=== PATIENT | female | born 1980 | race Caucasian/White ===

== ENCOUNTER → 2019-02-15 10:02 | Outpatient (CLI) | payer OTHER, SELFPAY ==
[2019-02-15 16:46] LABS: Chlamydia Trachomatis by PCR Negative (Negative); Neisserai gonorrhoeae by PCR Negative (Negative); Probe Check PASS; Sample Adequacy Control PASS; Specimen Processing Control PASS
[2019-02-21 11:30] LABS: HPV APTIMA, High Risk Negative (Negative)
== END ==
PROVIDERS: Visit Provider Obstetrics & Gynecology
DX: Z32.01 Encounter for pregnancy test, result positive (principal); Z12.4 Encounter for screening for malignant neoplasm of cervix; Z11.3 Encounter for screening for infections with a predominantly sexual mode of transmission
CPT/HCPCS: 87491; 87591; 87624; 88175; G0145

== ENCOUNTER → 2019-02-21 | Outpatient (CLI) | payer OTHER, SELFPAY ==
--- NOTE | 2019-02-21 10:45 | ECHOD_ITS ---
Reason For Study: HTN in Procedure This was a 2D Doppler, Color Flow transthoracic echocardiogram. Exam performed in department. Left Ventricle Normal size and thickness. The estimated ejection fraction is 75 %. Stage 1 diastolic dysfunction. No regional wall motion abnormalities noted. Right Ventricle Normal size and thickness. Normal systolic function. Atria Normal left atrium. Normal right atrium. Normal atrial septum. Mitral Valve The mitral valve is structurally normal. No prolapse or stenosis seen. Tricuspid Valve The tricuspid valve is not well visualized. Unable to estimate RV systolic pressure due to insufficient tricuspid regurgitant envelope. Aortic Valve Normal aortic valve. Trisinus/trileaflet aortic valve. Pulmonic Valve Normal pulmonic valve. Great Vessels Normal aortic root. Normal arch. Normal inferior vena cava. Inferior vena cava collapse with sniff. Pericardium/Pleural No pericardial effusion. MMode/2D Measurements & Calculations LVIDd: 4.5 cm IVSd: 1.0 cm Ao root diam: 3.0 cm LVIDs: 2.5 cm LVPWd: 1.1 cm RVDd: 3.2 cm FS: 43.8 % LAV(MOD-bp): 45.1 ml LA A4 area: 16.4 cm2 LA dimension(2D): 3.5 cm LAV(MOD-bp) Indexed: 22.9 ml/m2 LAV(MOD-sp2): 46.7 ml LAV(MOD-sp4): 44.2 ml RA A4 area: 14.3 cm2 Time Measurements MV dec time: 0.18 sec Doppler Measurements & Calculations MV E max santosh: 76.9 cm/sec Lat Peak E' Santosh: 10.5 cm/sec Med Peak E' Santosh: 9.5 cm/sec MV A max santosh: 89.6 cm/sec E/E' lat: 7.4 E/E' med: 8.1 MV E/A: 0.86 Ao V2 max: 155.7 cm/sec LV V1 max: 127.6 cm/sec PA V2 max: 114.7 cm/sec Ao max P.7 mmHg LV V1 max P.5 mmHg Interpretation Summary The estimated ejection fraction is 75 %. Stage 1 diastolic dysfunction. Unable to estimate RV systolic pressure due to insufficient tricuspid regurgitant envelope. There is no comparison study available. Ordering Physician: Kiley Mendez Referring Physician: Lonnie Garcia Performed By: Shu Encarnacion, DARRELL, RVT
== END | disposition home or self-care (01) ==
LOC: CVS 10:43
PROVIDERS: Family Provider Family Medicine; PCP Family Medicine; Referring Provider Obstetrics & Gynecology; Visit Provider Obstetrics & Gynecology
DX: O10.919 Unspecified pre-existing hypertension complicating pregnancy, unspecified trimester (principal); Z3A.00 Weeks of gestation of pregnancy not specified
CPT/HCPCS: 93306

== ENCOUNTER → 2019-03-12 09:55 | Outpatient (CLI) | payer OTHER, SELFPAY ==
[2019-03-12 10:40] LABS: Absolute Lymphocyte Count 1.74 X10^3/uL (0.83-4.51); Absolute Neutrophil Count 6.3 X10^3/uL (2.0-7.7); Basophil# 0.02 X10^3/uL; Basophil% 0.2 % (0-1); Eosinophil# 0.04 X10^3/uL; Eosinophils% 0.5 % (0-5); Hematocrit 38.7 % (37-47); Hemoglobin 13.2 g/dL (12.0-15.0); Lymphocyte # 1.74 X10^3/ul (4.0); Lymphocyte % 20.3 % (19-41); Mean Corp Hgb Conc 34.1 g/dL (32-36); Mean Corpuscular Hgb 31.2 pg (27.0-32.0); Mean Corpuscular Volume 91.5 fL (81-99); Mean Platelet Vol. 11.5 fl (6.2-12.0); Monocyte# 0.47 X10^3/uL; Monocyte% 5.5 % (0-10); NRBC Flagged by Analyzer 0 % (0-5); Neutrophil # 6.29 X10^3/uL (2.7-7.7); Neutrophil % 73.2 % (47-70); Platelet Count 182 K/mm3 (150-450); Red Blood Count 4.23 M/mm3 (4.2-5.4); White Blood Count 8.6 K/mm3 (4.4-11.0)
[2019-03-12 10:43] LABS: Color, Urine Yellow (Yellow); Glucose, Dipstick Normal (Normal); Ketone-Dipstick 50 mg/dl (Negative); Leukocyte Esterase-Dipstick 500 /ul (Negative); Nitrite-Dipstick Negative (Negative); Occult Blood-Urine 25 /ul (Negative); Protein-Dipstick 30 mg/dl (Negative); Specific Gravity, Urine 1.025 (1.002-1.030); Urine Bilirubin Dipstick Negative (Negative); Urine Clarity Sl. Cloudy (Clear); Urine Urobilinogen Normal (Normal)
[2019-03-12 10:59] LABS: Amphetamine Urine VISTA NEGATIVE (<1000 ng/mL); Barbiturate Urine VISTA NEGATIVE (< 200 ng/mL); Benzodiazepine Urine VISTA NEGATIVE (< 200 ng/mL); Cocaine Urine VISTA NEGATIVE (< 300 ng/mL); Ecstacy Urine VISTA NEGATIVE (< 500 ng/mL); Methadone Urine VISTA NEGATIVE (< 300 ng/mL); PCP Urine VISTA NEGATIVE (< 25 ng/mL); THC Urine VISTA NEGATIVE (< 50 ng/mL); Vista UDS pH Range 5
[2019-03-12 11:14] LABS: ALB/GLOB Ratio 0.8 RATIO (0.9-2.4); AST(SGOT) 9 U/L (15-37); Alanine Aminotransfer ALT/SGPT 15 U/L (13-56); Albumin, Serum 3.1 g/dL (3.2-5.0); Alkaline Phosphatase 44 U/L (45-117); Anion Gap 9 (5-15); BUN 6 mg/dL (7-18); BUN/Creat Ratio 8.6 RATIO (10-20); Calcium,Total 9.1 mg/dL (8.5-10.1); Chloride 107 mmol/L (98-107); Creatinine, Serum 0.69 mg/dL (0.55-1.02); EST Glomerular Filtration Rate 101 mL/min (>60); Est Glom Filt Rate - Afr Amer 122 mL/min (>60); Globulin 4.1 g/dL (2.2-4.2); Glucose 225 mg/dL (74-106); Glucose Challenge Gest 1H 50g 225 mg/dL (70-140); Potassium 3.5 mmol/L (3.5-5.1); Protein, Total 7.2 g/dL (6.4-8.2); Sodium Level 136 mmol/L (136-145); Thyroid Stim Hormone (TSH) 2.19 uIU/mL (0.358-3.74)
[2019-03-12 11:16] LABS: BNP,B-Type NATRIURETIC PEPTIDE 12.9 pg/mL (0-100)
[2019-03-12 11:56] LABS: HIV - WCH Non-Reactive (Nonreactive); Hepatitis B Surface Antigen Non-Reactive (Nonreactive); Hepatitis C Antibody Non-Reactive (Nonreactive); Rubella IgG 122.3 IU/mL
[2019-03-13 18:42] LABS: Hemoglobin A1c 5.7 % (4.2-6.3)
[2019-03-16 00:53] LABS: Prenatal RPR NONREACTIVE (NONREACTIVE)
== END ==
PROVIDERS: Visit Provider Obstetrics & Gynecology
DX: O99.282 Endocrine, nutritional and metabolic diseases complicating pregnancy, second trimester (principal); E28.2 Polycystic ovarian syndrome; O99.810 Abnormal glucose complicating pregnancy; Z3A.00 Weeks of gestation of pregnancy not specified
CPT/HCPCS: 36415; 80053; 80307; 81002; 82306; 82950; 83036; 83880; 84443; 85025; 86703; 86762; 86803; 87340

== ENCOUNTER 2019-04-10 13:30 | Outpatient (RCR) | payer OTHER, SELFPAY | END 2019-04-16 23:59 | LOC: DC 13:30 | PROVIDERS: Visit Provider Obstetrics & Gynecology | DX: O24.419 Gestational diabetes mellitus in pregnancy, unspecified control (principal) | CPT/HCPCS: 97802; G0108 ==

== ENCOUNTER 2019-05-17 16:00 | Outpatient (RCR) | payer OTHER, SELFPAY | END 2019-05-17 23:59 | LOC: DC 16:00 | PROVIDERS: Visit Provider Obstetrics & Gynecology | DX: O24.419 Gestational diabetes mellitus in pregnancy, unspecified control (principal) ==

== ENCOUNTER → 2019-06-08 09:38 | Outpatient (CLI) | payer OTHER, SELFPAY ==
[2019-06-08 10:57] LABS: Hematocrit 38.1 % (37-47); Hemoglobin 12.8 g/dL (12.0-15.0); Mean Corp Hgb Conc 33.6 g/dL (32-36); Mean Corpuscular Hgb 31.8 pg (27.0-32.0); Mean Corpuscular Volume 94.5 fL (81-99); Mean Platelet Vol. 11.6 fl (6.2-12.0); Platelet Count 212 K/mm3 (150-450); RBC Distribution Width SD 44.8 fl (35.1-43.9); Red Blood Count 4.03 M/mm3 (4.2-5.4); White Blood Count 8.1 K/mm3 (4.4-11.0)
== END ==
PROVIDERS: Visit Provider Obstetrics & Gynecology
DX: Z34.82 Encounter for supervision of other normal pregnancy, second trimester (principal)
CPT/HCPCS: 36415; 85027

== ENCOUNTER 2019-06-11 16:30 | Outpatient (RCR) | payer OTHER, SELFPAY | END 2019-06-16 23:59 | LOC: DC 16:30 | PROVIDERS: Visit Provider Obstetrics & Gynecology | DX: Z71.3 Dietary counseling and surveillance; O24.419 Gestational diabetes mellitus in pregnancy, unspecified control; Z3A.00 Weeks of gestation of pregnancy not specified ==

== ENCOUNTER → 2019-08-10 13:57 | Outpatient (CLI) | payer OTHER, SELFPAY | PROVIDERS: Visit Provider Obstetrics & Gynecology | DX: Z36.85 Encounter for antenatal screening for Streptococcus B (principal) | CPT/HCPCS: 87081 ==

== ENCOUNTER 2019-08-24 07:08 | Inpatient (IN) | payer OTHER, SELFPAY ==
--- NOTE | 2019-08-24 08:08 | PCM.HP.OB ---
- Problem List (1) Gestational diabetes mellitus Status: Acute Qualifiers: Gestational diabetes mellitus control: insulin-controlled Trimester: third trimester Qualified Code(s): O24.414 - Gestational diabetes mellitus in , insulin controlled (2) 38 weeks gestation of Status: Acute History Date of Admission: 08/24/19 Final DANIS: 09/02/19 Gestational age: 38 Weeks and 5 Days History of this : This is a 39 year-old, G [2], P [1001], at 38 5/7 weeks gestational age, hx GDMA2 on insulin for scheduled induction of labor. No complaints. Alcohol: None Number of Fetus(es): 1 NST - FHR Rate Baby A Baseline: 140 Variability:: Moderate Accelerations:: 15 x 15 Decelerations:: None NST Reactive:: Yes FHR Category:: Category I Uterine Activity:: 2-3/10 min History Past Pregnancies: Past Pregnancies Delivery Date GA/ Weeks Outcome Route Wt Sex Labor Length Anesthesia Delivery Location 12/2003 41 Living [id number] 14 Epidural [place] Labs: Labs 08/24/19 08/24/19 08/24/19 08:10 08:10 09:30 WBC 8.7 RBC 4.16 L Hgb 13.0 Hct 38.4 MCV 92.3 MCH 31.3 MCHC 33.9 RDW Std Deviation 44.7 H RDW Coeff of Ruben 13.3 Plt Count 171 MPV 11.1 Immature Gran % (Auto) 0.500 Neut % (Auto) 70.3 H Lymph % (Auto) 20.5 [place] % (Auto) 7.9 Eos % (Auto) 0.6 Baso % (Auto) 0.2 Absolute Neuts (auto) 6.1 Absolute Lymphs (auto) 1.77 Nucleated RBC % 0 Sodium 138 Potassium 4.0 Chloride 108 H Carbon Dioxide 22.0 Anion Gap 8 BUN 7 Creatinine 0.76 Estim Creat Clear Calc 80.16 Est GFR (MDRD) Af Amer 111 Est GFR (MDRD) Non-Af 92 BUN/Creatinine Ratio 9.3 L Glucose 115 H Uric Acid 5.3 Calcium 9.4 Total Bilirubin 0.40 AST 9 L ALT 13 Alkaline Phosphatase 132 H Total Protein 7.0 Albumin 2.9 L Globulin 4.1 Albumin/Globulin Ratio 0.7 L Urine Color Yellow Urine Clarity Sl. Cloudy Urine pH 6.5 Ur Specific [place] 1.020 Urine Protein 15 H Urine Glucose (UA) Normal Urine Ketones 150 H Urine Occult Blood 25 H Urine Nitrite Negative Urine Bilirubin Negative Urine Urobilinogen Normal Ur Leukocyte Esterase 500 H Urine RBC 0-5 SEEN Urine WBC 25-50 SEEN Ur Squamous Epith Cells 5-10 SEEN Urine Bacteria 1+ Urine Mucus 0 SEEN Expected Infant Delivery Method: Spontaneous Vaginal Number of Visits: 13 Review of Systems Eyes: Denies: Vision Change Gastrointestinal: Denies: Abdominal Pain, Nausea Gynecological: Denies: Vaginal bleeding Neurological: Denies: Headaches Physical Exam Vitals: avss General: Alert, Oriented x3, Cooperative, No apparent distress HEENT: Atraumatic, Normocephalic Cardiovascular: Regular Rhythm Lungs: Normal air movement Abdomen: Soft, Non Tender, Non-Distended, Gravid Neurological: Neuro grossly intact, - - +2 b/l LE DTRs, + 3 b/l UE DTRs STEWARD/STEWARDESS SMOKE ROOM: Normal external genitalia Estimated gestational size: Appropriate for gestational size Presentation: - - Cephalic on US, OP Cervix Dilation (cm): 3 Station: -3 Effacement (%): 50 Assessment/Plan All Active Problems Gestational diabetes mellitus (Acute) 38 weeks gestation of (Acute) This is a 39 year-old, G [2], P [1], at 38 5/7 weeks gestational age, hx GDM. -Pitocin induction -IOL r/b/i/a including section as alternative and reviewed shoulder dystocia risks and potential sequelae including risk for HIE, CP, . Consents signed. Pt opts for trial of labor. Patient and spouse given opportunity to ask questions and questions answered to their satisfaction. -GBS neg -Insulin ordered at half dose
[2019-08-24] MEDS: Lactated Ringers 1,000 ML 50 ML IV (08:25)
[2019-08-24 08:34] LABS: Absolute Lymphocyte Count 1.77 X10^3/uL (0.83-4.51); Absolute Neutrophil Count 6.1 X10^3/uL (2.0-7.7); Basophil# 0.02 X10^3/uL; Basophil% 0.2 % (0-1); Eosinophil# 0.05 X10^3/uL; Eosinophils% 0.6 % (0-5); Hematocrit 38.4 % (37-47); Lymphocyte # 1.77 X10^3/ul (4.0); Lymphocyte % 20.5 % (19-41); Mean Corp Hgb Conc 33.9 g/dL (32-36); Mean Corpuscular Hgb 31.3 pg (27.0-32.0); Mean Corpuscular Volume 92.3 fL (81-99); Mean Platelet Vol. 11.1 fl (6.2-12.0); Monocyte# 0.68 X10^3/uL; Monocyte% 7.9 % (0-10); NRBC Flagged by Analyzer 0 % (0-5); Neutrophil # 6.09 X10^3/uL (2.7-7.7); Neutrophil % 70.3 % (47-70); Platelet Count 171 K/mm3 (150-450); RBC Distribution Width CV 13.3 % (11.6-14.6); RBC Distribution Width SD 44.7 fl (35.1-43.9); Red Blood Count 4.16 M/mm3 (4.2-5.4); White Blood Count 8.7 K/mm3 (4.4-11.0)
[2019-08-24 08:49] VITALS: BMI 41.2
[2019-08-24 08:51] LABS: Bedside Glucose 116 mg/dL (70-110)
[2019-08-24 08:58] LABS: ALB/GLOB Ratio 0.7 RATIO (0.9-2.4); AST(SGOT) 9 U/L (15-37); Alanine Aminotransfer ALT/SGPT 13 U/L (13-56); Albumin, Serum 2.9 g/dL (3.2-5.0); Alkaline Phosphatase 132 U/L (45-117); Anion Gap 8 (5-15); BUN 7 mg/dL (7-18); BUN/Creat Ratio 9.3 RATIO (10-20); Calcium,Total 9.4 mg/dL (8.5-10.1); Chloride 108 mmol/L (98-107); Creatinine, Serum 0.76 mg/dL (0.55-1.02); EST Glomerular Filtration Rate 92 mL/min (>60); Est Glom Filt Rate - Afr Amer 111 mL/min (>60); Estimated Creatinine Clearance 80.16 ml/min; Globulin 4.1 g/dL (2.2-4.2); Glucose 115 mg/dL (74-106); Sodium Level 138 mmol/L (136-145); Uric Acid 5.3 mg/dL (2.6-6.0)
[2019-08-24] MEDS: Oxytocin 30 units/NS 500 ml 30 UNITS/500 ML IV.SOLN IV (09:30)
[2019-08-24] MEDS: Insulin NPH Human 100 UNITS/ML PEN 20 UNITS SC (09:32)
[2019-08-24 10:12] LABS: Mucous, Urine 0 SEEN /hpf (<or=2+)
[2019-08-24 10:26] LABS: Color, Urine Yellow (Yellow); Glucose, Dipstick Normal (Normal); Leukocyte Esterase-Dipstick 500 /ul (Negative); Nitrite-Dipstick Negative (Negative); Occult Blood-Urine 25 /ul (Negative); Protein-Dipstick 15 mg/dl (Negative); Urine Bilirubin Dipstick Negative (Negative); Urine Clarity Sl. Cloudy (Clear); Urine Urobilinogen Normal (Normal); Urine pH 6.5 (5.0 - 8.0)
[2019-08-24 10:28] LABS: Ketone-Dipstick 150 mg/dl (Negative)
[2019-08-24 10:33] LABS: Bacteria 1+ /hpf (None Seen); Red Blood Cells-Urine 0-5 SEEN /hpf (0-5); Squamous Epithelial Cells - UA 5-10 SEEN /hpf (5-10); White Blood Cells 25-50 SEEN /hpf (0-5)
[2019-08-24 12:41] LABS: Bedside Glucose 105 mg/dL (70-110)
--- NOTE | 2019-08-24 12:56 | PCM.PN.BLA ---
Progress Note LABOR PROGRESS NOTE No complaints. AVSS GEN - NAD, AAO x 3 FHR 150, moderate variability, some loss of contact TOCO 2-3/10 min SVE 4/50/-3, moderate and midposition A/P: 39yo @ 38 5/7wga, hx GDMA2 -FS well controlled -Amniotomy performed with clear fluid, ISE and IUPC placed -Continue pitocin as tolerated by mother and fetus -Maternal and statuses reassuring
[2019-08-24] MEDS: Lactated Ringers 500 ML 999 ML IV ×3 (13:29→19:52)
[2019-08-24] MEDS: fentaNYL-bupivacaine (epidural) 100 ML BAG EPIDURAL ×2 (14:25→19:39)
[2019-08-24 16:41] LABS: Bedside Glucose 107 mg/dL (70-110)
[2019-08-24 17:41] LABS: Bedside Glucose 97 mg/dL (70-110)
[2019-08-24] MEDS: Lactated Ringers 1,000 ML 200 ML IV (18:35)
[2019-08-24 18:46] LABS: Bedside Glucose 87 mg/dL (70-110)
[2019-08-24 19:51] LABS: Bedside Glucose 122 mg/dL (70-110)
[2019-08-24] MEDS: Insulin NPH Human 100 UNITS/ML PEN 18 UNITS SC (20:00)
--- NOTE | 2019-08-24 20:47 | PN_ITS ---
Progress Note FHT: 150 Moderate variability reactive periodic variable decelerations category II tracing. resolved with position changes. now early decels [place]: 2 1/2 minutes Contractions
--- NOTE | 2019-08-24 20:50 | NURSING ---
Dr. Andujar updated about patient's BGT. Provider wants BGT checked in another 30 minutes
[2019-08-24 20:51] LABS: Bedside Glucose 127 mg/dL (70-110)
[2019-08-24 21:25] LABS: Bedside Glucose 115 mg/dL (70-110)
[2019-08-24 22:31] LABS: Bedside Glucose 102 mg/dL (70-110)
[2019-08-24] MEDS: Oxytocin 30 units/NS 500 ml 30 UNITS/500 ML IV.SOLN 334 UNITS IV (22:38)
[2019-08-24] MEDS: Carboprost Tromethamine 250 MCG/ML Ampul IM (22:44)
[2019-08-24] MEDS: miSOPROStol 200 MCG Tablet 1000 MCG RECTAL (22:49)
--- NOTE | 2019-08-24 22:57 | PCM.OPRPT ---
Problem List (1) Uterine atony, , without hemorrhage Status: Acute (2) Gestational diabetes mellitus Status: Acute Qualifiers: Gestational diabetes mellitus control: insulin-controlled Trimester: third trimester Qualified Code(s): O24.414 - Gestational diabetes mellitus in , insulin controlled (3) 38 weeks gestation of Status: Acute Vaginal Delivery Maternal Presentation: Medically Indicated Induction iol chtn and gdma2 Method of Induction: Pitocin Medical Reason for Induction: Gestational Hypertension Amniotic Membrane Rupture Type: Artificial Amniotic Fluid Description: Clear Final DANIS: 09/02/19 Gestational age: 38 Weeks and 5 Days Date of Procedure: 08/24/19 Pre-Operative Diagnosis: iol chtn gdma2 Post-Operative Diagnosis: same Surgery/ Procedure Performed: Spontaneous Vaginal Delivery Type of Anesthesia: Epidural Description of Procedure: Patient began pushing and delivered the head in the [DANIELA] presentation. The head was delivered atraumatically and a loose nuchal cord x2 was identified and easily reduced over the 's head. The anterior and posterior shoulders delivered without complication followed by the rest of the and the was placed on the maternal abdomen. Delayed cord clamping was employed for approximately 60 seconds. Cord was clamped and cut and gentle traction was applied to the cord and the placenta delivered spontaneously immediately following it was noted to be intact with three-vessel cord. The perineum and vagina were inspected and noted to have a small first-degree perineal laceration that was repaired in the usual fashion with 3-0 Vicryl Rapide. EBL was 600 cc. There was some uterine atony noted which was remedied with bimanual massage, Hemabate and Cytotec and Pitocin. Discussed with nursing to monitor blood loss over the next 24 hours. Patient and tolerated delivery well. Presentation: DANIELA Placental Delivery Description: Spontaneous Placenta Disposition: [facility] Cord Vessel Description: 3 Vessels Cord Entanglement: Around neck x 2, loose Drain: Bonds to straight drain Estimated Blood Loss: 600 Infant A gender: Male Episiotomy Description: None Laceration: Perineal Extension/lac, 1st degree Medications given after delivery: IV Pitocin, IM Hemabate, - - cytotec Complications: None Multi Select Codes - Urinary/Genital Urinary/Genital CPT Codes: 82628 Vaginal Delivery Only
[2019-08-25] VITALS (7 sets, daily range): BP systolic 101–118; BP diastolic 58–70; PULSE 95–109; RESP 16–18; TEMP 36.8–37.5; O2SAT 98
[2019-08-25 00:55] LABS: Bedside Glucose 99 mg/dL (70-110)
--- NOTE | 2019-08-25 01:05 | NURSING ---
audelia pad weighed after recovery. Weight was 405 grams
--- NOTE | 2019-08-25 02:02 | NURSING ---
Lorena pad changed, weight 245 grams
--- NOTE | 2019-08-25 02:16 | NURSING ---
Dr. Andujar updated about bloos loss. Orders given to given hemabate, start transexemic acid, and 500cc LR bolus
[2019-08-25] MEDS: Carboprost Tromethamine 250 MCG/ML Ampul IM (02:32)
[2019-08-25] MEDS: 0.9% Saline Lock 10 ML Syringe IV ×2 (02:43→02:59)
[2019-08-25] MEDS: Acetaminophen 500 MG Tablet 1000 MG PO (02:59)
[2019-08-25] MEDS: Lactated Ringers 500 ML 999 ML IV (03:00)
[2019-08-25 05:27] LABS: Absolute Lymphocyte Count 1.33 X10^3/uL (0.83-4.51); Absolute Neutrophil Count 13.2 X10^3/uL (2.0-7.7); Basophil# 0.03 X10^3/uL; Basophil% 0.2 % (0-1); Eosinophil# 0.01 X10^3/uL; Eosinophils% 0.1 % (0-5); Hematocrit 30.3 % (37-47); Hemoglobin 10.4 g/dL (12.0-15.0); Lymphocyte # 1.33 X10^3/ul (4.0); Lymphocyte % 8.4 % (19-41); Mean Corp Hgb Conc 34.3 g/dL (32-36); Mean Corpuscular Hgb 31.6 pg (27.0-32.0); Mean Corpuscular Volume 92.1 fL (81-99); Monocyte# 1.18 X10^3/uL; Monocyte% 7.4 % (0-10); NRBC Flagged by Analyzer 0 % (0-5); Neutrophil # 13.21 X10^3/uL (2.7-7.7); Neutrophil % 83.1 % (47-70); Platelet Count 195 K/mm3 (150-450); RBC Distribution Width CV 13.2 % (11.6-14.6); RBC Distribution Width SD 43.8 fl (35.1-43.9); Red Blood Count 3.29 M/mm3 (4.2-5.4); White Blood Count 15.9 K/mm3 (4.4-11.0)
[2019-08-25 05:37] LABS: Bedside Glucose 125 mg/dL (70-110)
--- NOTE | 2019-08-25 05:59 | PN.OBGYN_ITS ---
Patient Problems: Active and Suspected Problems Gestational diabetes mellitus (Acute) 38 weeks gestation of (Acute) Uterine atony, , without hemorrhage (Acute) Subjective: Has not eaten since delivery; tolerating clears well; passing flatus, has had two bowel movements, likely as a result of IM Hemabate and [place] Cytotec following delivery; progressing; denies s/s anemia Objective: AVSS, HR slightly elevated Nipples atraumatic Fundus firm, midline , u/u, lochia small Perineal repair well approximated, minimal edema, no erythema or ecchymosis - Physical Exam Vitals/I&O's: Vital Signs Pulse BP 109 H 107/64 08/25/19 03:16 08/25/19 03:16 Weight: 225 lb 8.526 oz Body Mass Index (BMI) 41.2 Intake and Output for Last 24 Hours 08/23/19 08/24/19 08/25/19 23:59 23:59 23:59 Intake Total 3501.17 / 3501.17 959.7 / 959.7 Balance 3501.17 / 3501.17 959.7 / 959.7 General: Alert, Oriented x3, Cooperative, No apparent distress HEENT: PERRLA, EOMI Oral: Moist Mucosa Neck: Supple Lungs: Clear to auscultation, Normal air movement Cardiovascular: Regular rate, Regular Rhythm Abdomen: Bowel Sounds Present, Soft, Non Tender, Non-Distended, Passing Flatus, Obese Extremities: Capillary Refill Less than 3 Seconds, No Calf Tenderness, Edema - 1+ non pitting bilateral lower extremities Skin: No rashes Musculoskeletal: No Tenderness to Palpation of Joints or Extremities Neurological: Cranial nerves II-XII grossly intact, Deep Tendon Reflexes 2+/4 and Symmetrical, Neuro grossly intact Psych/Mental Status: Normal Affect, Appropriate Laboratory Results 08/24/19 08:10: Sodium 138, Potassium 4.0, Chloride 108 H, Carbon Dioxide 22.0, Anion Gap 8, BUN 7, Creatinine 0.76, Estim Creat Clear Calc 80.16, Est GFR (MDRD) Af Amer 111, Est GFR (MDRD) Non-Af 92, BUN/Creatinine Ratio 9.3 L, Glucose 115 H, Uric Acid 5.3, Calcium 9.4, Total Bilirubin 0.40, AST 9 L, ALT 13, Alkaline Phosphatase 132 H, Total Protein 7.0, Albumin 2.9 L, Globulin 4.1, Albumin/Globulin Ratio 0.7 L 08/24/19 08:10: WBC 8.7, RBC 4.16 L, Hgb 13.0, Hct 38.4, MCV 92.3, MCH 31.3, MCHC 33.9, RDW Std Deviation 44.7 H, RDW Coeff of Ruben 13.3, Plt Count 171, MPV 11.1, Immature Gran % (Auto) 0.500, Neut % (Auto) 70.3 H, Lymph % (Auto) 20.5, [place] % (Auto) 7.9, Eos % (Auto) 0.6, Baso % (Auto) 0.2, Absolute Neuts (auto) 6.1, Absolute Lymphs (auto) 1.77, Nucleated RBC % 0 08/24/19 08:10: Blood Type Cancelled, A1 Antigen Typing Cancelled, Rho(D) Type Cancelled, Antibody Screen Cancelled 08/24/19 08:27: POC Glucose 116 H 08/24/19 09:30: Urine Color Yellow, Urine Clarity Sl. Cloudy, Urine pH 6.5, Ur Specific [place] 1.020, Urine Protein 15 H, Urine Glucose (UA) Normal, Urine Ketones 150 H, Urine Occult Blood 25 H, Urine Nitrite Negative, Urine Bilirubin Negative, Urine Urobilinogen Normal, Ur Leukocyte Esterase 500 H, Urine RBC 0-5 SEEN, Urine WBC 25-50 SEEN, Ur Squamous Epith Cells 5-10 SEEN, Urine Bacteria 1+, Urine Mucus 0 SEEN 08/24/19 09:37: Blood Type B POSITIVE, Antibody Screen NEGATIVE 08/24/19 12:28: POC Glucose 105 08/24/19 16:29: POC Glucose 107 08/24/19 17:35: POC Glucose 97 08/24/19 18:34: POC Glucose 87 08/24/19 19:38: POC Glucose 122 H 08/24/19 20:42: POC Glucose 127 H 08/24/19 21:18: POC Glucose 115 H 08/24/19 22:16: POC Glucose 102 08/24/19 23:18: POC Glucose 99 08/25/19 05:15: WBC 15.9 H, RBC 3.29 L, Hgb 10.4 L, Hct 30.3 L, MCV 92.1, MCH 31.6, MCHC 34.3, RDW Std Deviation 43.8, RDW Coeff of [place]en 13.2, Plt Count 195, MPV 11.0, Immature Gran % (Auto) 0.800, Neut % (Auto) 83.1 H, Lymph % (Auto) 8.4 L, [place] % (Auto) 7.4, Eos % (Auto) 0.1, Baso % (Auto) 0.2, Absolute Neuts (auto) 13.2 H, Absolute Lymphs (auto) 1.33, Nucleated RBC % 0 08/25/19 05:33: POC Glucose 125 H Current Medications Acetaminophen (Tylenol) 1,000 mg PO Q8H PRN PRN PRN Reason: Pain Score 1-3/10 Last Admin: 08/25/19 02:59 Dose: 1,000 mg Documented by: Bisacodyl (Dulcolax) 10 mg RECTAL UD PRN PRN Reason: If no BM Dibucaine (Dibucaine) 1 applic TOPICAL TID PRN PRN; Protocol PRN Reason: Discomfort Glucagon () 1 mg IM .X1 PRN PRN Reason: Hypoglycemia Hydrocortisone (Hytone) 1 applic TOPICAL TID PRN PRN; Protocol PRN Reason: Discomfort Dextrose (Dextrose 10%-Water) 250 mls @ 999 mls/hr IV X1 PRN; Protocol PRN Reason: HYPOGLYCEMIA Insulin Human Lispro (Humalog Kwikpen (Bkc)) 0 unit SC [facility]; Protocol Methylergonovine Maleate (Methergine) 0.2 mg IM X1 PRN PRN Reason: Excess bleeding/uterine atony Naproxen (Naprosyn) 500 mg PO Q8H PRN PRN PRN Reason: Pain Score 1-3/10 Ondansetron HCl (Zofran) 4 mg IV Q4H PRN PRN PRN Reason: Nausea Oxycodone HCl (Oxyir) 5 - 10 mg PO Q4H PRN PRN PRN Reason: Pain Score 4-10/10 Senna/Docusate Sodium (Senokot-S, [place]-Colace) 1 - 2 tablet PO DAILY PRN PRN PRN Reason: Constipation Simethicone (Mylicon) 80 mg PO PCHS PRN PRN Reason: Indigestion/Stomach pain Sodium Chloride () 5 - 15 ml IV UD PRN PRN Reason: SALINE FLUSH Last Admin: 08/25/19 02:59 Dose: 10 ml Documented by: Medical Necessity - Tobacco Use Smoking Status: Former smoker Assessment/Plan All Active Problems Gestational diabetes mellitus (Acute) 38 weeks gestation of (Acute) Uterine atony, , without hemorrhage (Acute) Assessment: 39yo G2 now P2002 delivered via @ 38w5d gestation GDMA2 Uterine Atony without hemorrhage Mild anemia PP day #1, involution and course progressing Plan: Discharge teaching started Continue POC blood sugar tests as previously ordered Maintain saline lock until bleeding stable May discharge home tomorrow if stable
--- NOTE | 2019-08-25 06:08 | DCINST_ITS ---
Discharge Diet: No Restrictions Discharge Activity: Return to Normal Activity, No Restrictions, May Shower, May Take a Tub Bath Return to work on:: 10/12/19 May resume sexual activity in: 6-8 weeks Weight Bearing Status: Weight bearing as tolerated Lifting Restrictions: Nothing heavier than the baby for two weeks Additional Activity Instructions:: Minimize cooking, cleaning, shopping and long car trips for two weeks; try to sleep at least eight hours in a 24 hour period for the first two weeks; sleep when the baby sleeps Call your doctor if your incision/area has: Continuous Slow Oozing, Sudden Increased Bleeding, Increased Pain/ Swelling, Increased Redness, Foul Smelling Discharge, Swelling at the incision site Call your doctor if you observe: Fever of 101 or Higher, Inability to urinate, Inability to have a bowel movement, Using more than one pad per hour, Shortness of breath, Fainting spells, Chest pain, Increased palpitations (irregular heartbeat), Calf discomfort, Uncontrolled pain Additional Instructions: If you experience any of the following, contact your healthcare provider. * Bleeding that soaks a pad every hour for 2 hours * Fever 100.4 or higher * Unrelieved incision or abdominal pain * Swelling, redness, discharge or bleeding from your incision or episiotomy site * Your incision begins to separate * Problems urinating (including inability to urinate or burning while urinating). * Visual changes * Severe headache * Flu-like symptoms * Pain or redness in one of both of your breasts * Pain, warmth, tenderness or swelling in your legs, especially the calf area * Frequent nausea and vomiting * Symptoms of depression or anxiety If you experience any of the following, call 911 or go to the nearest Emergency Room. * Chest pain * Problems breathing * Seizure activity * Partial or complete paralysis of a body part, slurred speech, weakness or marquis oping of the face, or a sudden inability to walk or hold your balance Allergies/Adverse Reactions: Allergies No Known Allergies Allergy (Verified 08/24/19 09:02) Please Follow Up With: Ifeoma Jarrett MD - . When: 2 weeks for blood sugar check; 6 weeks for checkup Primary Care Physician: Care Physician,No Primary [Primary Care Provider] - Test Results: Test results from this visit will be discussed in further detail at your follow- up appointment, if applicable.
--- NOTE | 2019-08-25 08:21 | PCM.PN.OB ---
Patient Problems: Active and Suspected Problems Gestational diabetes mellitus (Acute) 38 weeks gestation of (Acute) Uterine atony, , without hemorrhage (Acute) Subjective: doing well no complaints pain controlled no CP SOB N V ambulating well tolerating po lochia moderate now, improved after tranexamic acid, going fairly well - Physical Exam Vitals/I&O's: Vital Signs Pulse BP 109 H 107/64 08/25/19 03:16 08/25/19 03:16 Weight: 225 lb 8.526 oz Body Mass Index (BMI) 41.2 Intake and Output for Last 24 Hours 08/23/19 08/24/19 08/25/19 23:59 23:59 23:59 Intake Total 3501.17 / 3501.17 959.7 / 959.7 Output Total 100 / 100 Balance 3501.17 / 3501.17 859.7 / 859.7 General: Alert, Oriented x3 Laboratory Results 08/24/19 08:10: Sodium 138, Potassium 4.0, Chloride 108 H, Carbon Dioxide 22.0, Anion Gap 8, BUN 7, Creatinine 0.76, Estim Creat Clear Calc 80.16, Est GFR (MDRD) Af Amer 111, Est GFR (MDRD) Non-Af 92, BUN/Creatinine Ratio 9.3 L, Glucose 115 H, Uric Acid 5.3, Calcium 9.4, Total Bilirubin 0.40, AST 9 L, ALT 13, Alkaline Phosphatase 132 H, Total Protein 7.0, Albumin 2.9 L, Globulin 4.1, Albumin/Globulin Ratio 0.7 L 08/24/19 08:10: WBC 8.7, RBC 4.16 L, Hgb 13.0, Hct 38.4, MCV 92.3, MCH 31.3, MCHC 33.9, RDW Std Deviation 44.7 H, RDW Coeff of [place] 13.3, Plt Count 171, MPV 11.1, Immature Gran % (Auto) 0.500, Neut % (Auto) 70.3 H, Lymph % (Auto) 20.5, [place] % (Auto) 7.9, Eos % (Auto) 0.6, Baso % (Auto) 0.2, Absolute Neuts (auto) 6.1, Absolute Lymphs (auto) 1.77, Nucleated RBC % 0 08/24/19 08:10: Blood Type Cancelled, A1 Antigen Typing Cancelled, Rho(D) Type Cancelled, Antibody Screen Cancelled 08/24/19 08:27: POC Glucose 116 H 08/24/19 09:30: Urine Color Yellow, Urine Clarity Sl. Cloudy, Urine pH 6.5, Ur Specific [place] 1.020, Urine Protein 15 H, Urine Glucose (UA) Normal, Urine Ketones 150 H, Urine Occult Blood 25 H, Urine Nitrite Negative, Urine Bilirubin Negative, Urine Urobilinogen Normal, Ur Leukocyte Esterase 500 H, Urine RBC 0-5 SEEN, Urine WBC 25-50 SEEN, Ur Squamous Epith Cells 5-10 SEEN, Urine Bacteria 1+, Urine Mucus 0 SEEN 08/24/19 09:37: Blood Type B POSITIVE, Antibody Screen NEGATIVE 08/24/19 12:28: POC Glucose 105 08/24/19 16:29: POC Glucose 107 08/24/19 17:35: POC Glucose 97 08/24/19 18:34: POC Glucose 87 08/24/19 19:38: POC Glucose 122 H 08/24/19 20:42: POC Glucose 127 H 08/24/19 21:18: POC Glucose 115 H 08/24/19 22:16: POC Glucose 102 08/24/19 23:18: POC Glucose 99 08/25/19 05:15: WBC 15.9 H, RBC 3.29 L, Hgb 10.4 L, Hct 30.3 L, MCV 92.1, MCH 31.6, MCHC 34.3, RDW Std Deviation 43.8, RDW Coeff of [place] 13.2, Plt Count 195, MPV 11.0, Immature Gran % (Auto) 0.800, Neut % (Auto) 83.1 H, Lymph % (Auto) 8.4 L, [place] % (Auto) 7.4, Eos % (Auto) 0.1, Baso % (Auto) 0.2, Absolute Neuts (auto) 13.2 H, Absolute Lymphs (auto) 1.33, Nucleated RBC % 0 08/25/19 05:33: POC Glucose 125 H Current Medications Acetaminophen (Tylenol) 1,000 mg PO Q8H PRN PRN PRN Reason: Pain Score 1-3/10 Last Admin: 08/25/19 02:59 Dose: 1,000 mg Documented by: Bisacodyl (Dulcolax) 10 mg RECTAL UD PRN PRN Reason: If no BM Dibucaine (Dibucaine) 1 applic TOPICAL TID PRN PRN; Protocol PRN Reason: Discomfort Glucagon () 1 mg IM .X1 PRN PRN Reason: Hypoglycemia Hydrocortisone (Hytone) 1 applic TOPICAL TID PRN PRN; Protocol PRN Reason: Discomfort Dextrose (Dextrose 10%-Water) 250 mls @ 999 mls/hr IV X1 PRN; Protocol PRN Reason: HYPOGLYCEMIA Insulin Human Lispro (Humalog Kwikpen (Bkc)) 0 unit SC [facility]; Protocol Loperamide HCl (Imodium) 2 mg PO Q2H PRN PRN PRN Reason: Diarrhea Metformin [facility] (Glucophage) [facility] Methylergonovine Maleate (Methergine) 0.2 mg IM X1 PRN PRN Reason: Excess bleeding/uterine atony Naproxen (Naprosyn) 500 mg PO Q8H PRN PRN PRN Reason: Pain Score 1-3/10 Ondansetron HCl (Zofran) 4 mg IV Q4H PRN PRN PRN Reason: Nausea Oxycodone HCl (Oxyir) 5 - 10 mg PO Q4H PRN PRN PRN Reason: Pain Score 4-10/10 Senna/Docusate Sodium (Senokot-S, [place]-Colace) 1 - 2 tablet PO DAILY PRN PRN PRN Reason: Constipation Simethicone (Mylicon) 80 mg PO PCHS PRN PRN Reason: Indigestion/Stomach pain Sodium Chloride () 5 - 15 ml IV UD PRN PRN Reason: SALINE FLUSH Last Admin: 08/25/19 02:59 Dose: 10 ml Documented by: Medical Necessity - Tobacco Use Smoking Status: Former smoker Assessment/Plan All Active Problems Gestational diabetes mellitus (Acute) 38 weeks gestation of (Acute) Uterine atony, , without hemorrhage (Acute) s/p PPD # 1 1. routine post delivery care 2. breast feeding- support given 3. rh positive 4. rubella immune 5. GDM- has been on insulin since first trimester, true FBS this morning 125- will start metformin 500 BID and SSI ordered. carb controlled diet. discussed termite inspector recommend to fu with endocrinology. 6. uterine atony- given hemabate, cytotec, tranexamic acid and pitocin. well controlled now.
[2019-08-25] MEDS: metFORMIN HCl 500 MG Tablet PO ×2 (08:58→18:49)
[2019-08-25 09:01] LABS: Bedside Glucose 106 mg/dL (70-110)
[2019-08-25 11:06] LABS: Absolute Neutrophil Count 10.1 X10^3/uL (2.0-7.7); Basophil# 0.02 X10^3/uL; Basophil% 0.2 % (0-1); Eosinophil# 0.03 X10^3/uL; Eosinophils% 0.2 % (0-5); Hematocrit 26.8 % (37-47); Hemoglobin 9.4 g/dL (12.0-15.0); Lymphocyte % 14.2 % (19-41); Mean Corp Hgb Conc 35.1 g/dL (32-36); Mean Corpuscular Hgb 32.1 pg (27.0-32.0); Mean Corpuscular Volume 91.5 fL (81-99); Mean Platelet Vol. 11.2 fl (6.2-12.0); Monocyte# 0.73 X10^3/uL; Monocyte% 5.8 % (0-10); NRBC Flagged by Analyzer 0 % (0-5); Neutrophil # 10.06 X10^3/uL (2.7-7.7); Neutrophil % 79.2 % (47-70); Platelet Count 172 K/mm3 (150-450); RBC Distribution Width CV 13.3 % (11.6-14.6); RBC Distribution Width SD 43.9 fl (35.1-43.9); Red Blood Count 2.93 M/mm3 (4.2-5.4); White Blood Count 12.7 K/mm3 (4.4-11.0)
[2019-08-25 13:36] LABS: Bedside Glucose 104 mg/dL (70-110)
[2019-08-25 18:51] LABS: Bedside Glucose 125 mg/dL (70-110)
--- NOTE | 2019-08-26 00:19 | NURSING ---
This RN reported BGT 87 to primary nurse, Dasha Arias
[2019-08-26 00:21] LABS: Bedside Glucose 87 mg/dL (70-110)
[2019-08-26 02:45] VITALS: BP 98/56; PULSE 92; RESP 18; TEMP 36.7
--- NOTE | 2019-08-26 05:38 | PN.OBGYN_ITS ---
Patient Problems: Active and Suspected Problems Gestational diabetes mellitus (Acute) 38 weeks gestation of (Acute) Uterine atony, , without hemorrhage (Acute) Subjective: Pain well controlled, tolerating diet, passing flatus, well; planning BTL for contraception Objective: AVSS Breasts filling, nipples atraumatic Fundus firm, midline, u/1, lochia small Perineal repair well approximated, no edema, drainage, ecchymosis or erythema noted - Physical Exam Vitals/I&O's: Vital Signs Temp Pulse Resp BP Pulse Ox 98.0 F 92 18 98/56 L 98 08/26/19 02:45 08/26/19 02:45 08/26/19 02:45 08/26/19 02:45 08/25/19 16:45 Oxygen Delivery Method Room Air Weight: 225 lb 8.526 oz Body Mass Index (BMI) 41.2 Intake and Output for Last 24 Hours 08/24/19 08/25/19 08/26/19 23:59 23:59 23:59 Intake Total 3501.17 / 3501.17 959.7 / 959.7 Output Total 450 / 450 Balance 3501.17 / 3501.17 509.7 / 509.7 General: Alert, Oriented x3, Cooperative, No apparent distress HEENT: PERRLA, EOMI Oral: Moist Mucosa Neck: Supple Lungs: Clear to auscultation, Normal air movement Cardiovascular: Regular rate, Regular Rhythm Abdomen: Bowel Sounds Present, Soft, Non Tender, Non-Distended, Passing Flatus Extremities: Edema - 1+ non pitting bilateral lower extremities Skin: No rashes Musculoskeletal: No Tenderness to Palpation of Joints or Extremities Neurological: Cranial nerves II-XII grossly intact, Deep Tendon Reflexes 2+/4 and Symmetrical, Neuro grossly intact Psych/Mental Status: Normal Affect, Appropriate, Alert and oriented to time, place, person, mood and affect Laboratory Results 08/25/19 08:53: POC Glucose 106 08/25/19 10:55: WBC 12.7 H, RBC 2.93 L, Hgb 9.4 L, Hct 26.8 L, MCV 91.5, MCH 32.1 H, MCHC 35.1, RDW Std Deviation 43.9, RDW Coeff of Ruben 13.3, Plt Count 172, MPV 11.2, Immature Gran % (Auto) 0.400, Neut % (Auto) 79.2 H, Lymph % (Auto) 14.2 L, Campbell % (Auto) 5.8, Eos % (Auto) 0.2, Baso % (Auto) 0.2, Absolute Neuts (auto) 10.1 H, Absolute Lymphs (auto) 1.80, Nucleated RBC % 0 08/25/19 13:03: POC Glucose 104 08/25/19 18:45: POC Glucose 125 H 08/26/19 00:16: POC Glucose 87 Current Medications Acetaminophen (Tylenol) 1,000 mg PO Q8H PRN PRN PRN Reason: Pain Score 1-3/10 Last Admin: 08/25/19 02:59 Dose: 1,000 mg Documented by: Bisacodyl (Dulcolax) 10 mg RECTAL UD PRN PRN Reason: If no BM Dibucaine (Dibucaine) 1 applic TOPICAL TID PRN PRN; Protocol PRN Reason: Discomfort Hydrocortisone (Hytone) 1 applic TOPICAL TID PRN PRN; Protocol PRN Reason: Discomfort Loperamide HCl (Imodium) 2 mg PO Q2H PRN PRN PRN Reason: Diarrhea Metformin HCl (Glucophage) 500 mg PO BIDCM [facility] Last Admin: 08/25/19 18:49 Dose: 500 mg Documented by: Methylergonovine Maleate (Methergine) 0.2 mg IM X1 PRN PRN Reason: Excess bleeding/uterine atony Naproxen (Naprosyn) 500 mg PO Q8H PRN PRN PRN Reason: Pain Score 1-3/10 Oxycodone HCl (Oxyir) 5 - 10 mg PO Q4H PRN PRN PRN Reason: Pain Score 4-10/10 Senna/Docusate Sodium (Senokot-S, Lorena-Colace) 1 - 2 tablet PO DAILY PRN PRN PRN Reason: Constipation Simethicone (Mylicon) 80 mg PO PCHS PRN PRN Reason: Indigestion/Stomach pain Medical Necessity - Tobacco Use Smoking Status: Former smoker Assessment/Plan All Active Problems Gestational diabetes mellitus (Acute) 38 weeks gestation of (Acute) Uterine atony, , without hemorrhage (Acute) Assessment: 39yo G2 now P2002 delivered via @ 38w5d gestation GDMA2 Uterine Atony without hemorrhage Mild anemia PP day #2, normal involution, normal course Plan: Discharge teaching completed Continue blood sugar testing at home as in May discharge home today pending evaluation by Dr. Richardson RTO 2 week for evaluation of blood glucose conrol, 6 weeks for checkup
[2019-08-26 08:30] VITALS: BP 98/52; PULSE 83; RESP 16; TEMP 37
[2019-08-26] MEDS: metFORMIN HCl 500 MG Tablet PO (08:35)
--- NOTE | 2019-08-26 08:46 | PN.OBGYN_ITS ---
Subjective: doing well no complaints pain controlled no CP SOB N V ambulating well tolerating po lochia moderate, going well - Physical Exam Vitals/I&O's: Vital Signs Temp Pulse Resp BP Pulse Ox 98.0 F 92 18 98/56 L 98 08/26/19 02:45 08/26/19 02:45 08/26/19 02:45 08/26/19 02:45 08/25/19 16:45 Oxygen Delivery Method Room Air Weight: 225 lb 8.526 oz Body Mass Index (BMI) 41.2 Intake and Output for Last 24 Hours 08/24/19 08/25/19 08/26/19 23:59 23:59 23:59 Intake Total 3501.17 / 3501.17 959.7 / 959.7 Output Total 450 / 450 Balance 3501.17 / 3501.17 509.7 / 509.7 General: Alert, Oriented x3 Laboratory Results 08/25/19 08:53: POC Glucose 106 08/25/19 10:55: WBC 12.7 H, RBC 2.93 L, Hgb 9.4 L, Hct 26.8 L, MCV 91.5, MCH 32.1 H, MCHC 35.1, RDW Std Deviation 43.9, RDW Coeff of Ruben 13.3, Plt Count 172, MPV 11.2, Immature Gran % (Auto) 0.400, Neut % (Auto) 79.2 H, Lymph % (Auto) 14.2 L, [place] % (Auto) 5.8, Eos % (Auto) 0.2, Baso % (Auto) 0.2, Absolute Neuts (auto) 10.1 H, Absolute Lymphs (auto) 1.80, Nucleated RBC % 0 08/25/19 13:03: POC Glucose 104 08/25/19 18:45: POC Glucose 125 H 08/26/19 00:16: POC Glucose 87 Current Medications Acetaminophen (Tylenol) 1,000 mg PO Q8H PRN PRN PRN Reason: Pain Score 1-3/10 Last Admin: 08/25/19 02:59 Dose: 1,000 mg Documented by: Bisacodyl (Dulcolax) 10 mg RECTAL UD PRN PRN Reason: If no BM Dibucaine (Dibucaine) 1 applic TOPICAL TID PRN PRN; Protocol PRN Reason: Discomfort Glucagon () 1 mg IM .X1 PRN PRN Reason: Hypoglycemia Hydrocortisone (Hytone) 1 applic TOPICAL TID PRN PRN; Protocol PRN Reason: Discomfort Dextrose (Dextrose 10%-Water) 250 mls @ 999 mls/hr IV X1 PRN; Protocol PRN Reason: HYPOGLYCEMIA Insulin Human Lispro (Humalog Kwikpen (Bkc)) 0 unit SC [facility]; Protocol Last Admin: 08/26/19 04:14 Dose: Not Given Documented by: Loperamide HCl (Imodium) 2 mg PO Q2H PRN PRN PRN Reason: Diarrhea [facility]formin [facility] (Glucophage) [facility] Last Admin: 08/26/19 08:35 Dose: 500 mg Documented by: Methylergonovine Maleate (Methergine) 0.2 mg IM X1 PRN PRN Reason: Excess bleeding/uterine atony Naproxen (Naprosyn) 500 mg PO Q8H PRN PRN PRN Reason: Pain Score 1-3/10 Ondansetron HCl (Zofran) 4 mg IV Q4H PRN PRN PRN Reason: Nausea Oxycodone HCl (Oxyir) 5 - 10 mg PO Q4H PRN PRN PRN Reason: Pain Score 4-10/10 Senna/Docusate Sodium (Senokot-S, Lorena-Colace) 1 - 2 tablet PO DAILY PRN PRN PRN Reason: Constipation Simethicone (Mylicon) 80 mg PO PCHS PRN PRN Reason: Indigestion/Stomach pain Sodium Chloride () 5 - 15 ml IV UD PRN PRN Reason: SALINE FLUSH Last Admin: 08/25/19 02:59 Dose: 10 ml Documented by: Medical Necessity - Tobacco Use Smoking Status: Former smoker Assessment/Plan All Active Problems Gestational diabetes mellitus (Acute) 38 weeks gestation of (Acute) Uterine atony, , without hemorrhage (Acute) s/p PPD # 2 1. routine post delivery care 2. breast feeding- support given 3. rh positive 4. rubella immune 5. GDM- has been on insulin since first trimester, started metformin 500 BID and SSI ordered. carb controlled diet. discussed rat exterminator recommend to fu with endocrinology. 6. uterine atony- given hemabate, cytotec, tranexamic acid and pitocin. well controlled now.
[2019-08-26 09:00] LABS: Bedside Glucose 84 mg/dL (70-110)
--- NOTE | 2019-08-26 11:19 | NURSING ---
at 1110, dr lujan phoned and asked for discharge order on pt. per telephone order, dr lujan gave discharge order.
[2019-08-26 13:01] LABS: Bedside Glucose 81 mg/dL (70-110)
--- NOTE | 2019-08-26 13:57 | NURSING ---
at 1345, pt states that PHQ9 scoring due to the stress of her job. contemplating career change due to the stress. pt states no concerns about her mental health and going home
[2019-08-26 14:45] VITALS: BP 110/72; PULSE 95; TEMP 37
== END 2019-08-26 15:50 | disposition home or self-care (01) | DRG 806 ==
PROVIDERS: Advanced Practice Midwife; Obstetrics & Gynecology; Admitting Provider Obstetrics & Gynecology; Family Provider Family Medicine; Referring Provider Obstetrics & Gynecology; Visit Provider Obstetrics & Gynecology
DX: O24.424 Gestational diabetes mellitus in childbirth, insulin controlled (principal); O10.92 Unspecified pre-existing hypertension complicating childbirth; Z37.0 Single live birth; O76 Abnormality in fetal heart rate and rhythm complicating labor and delivery; O62.2 Other uterine inertia; O70.0 First degree perineal laceration during delivery; O69.81X0 Labor and delivery complicated by cord around neck, without compression, not applicable or unspecified; Z3A.38 38 weeks gestation of pregnancy; O90.81 Anemia of the puerperium; D64.9 Anemia, unspecified
CPT/HCPCS: 36415; 59025; 59050; 80053; 81001; 82962; 84550; 85025; 86850; 86900; 86901; 99218; J7120; 90686; A4216; G0378; J3490